=== PATIENT | female | born 1980 | race Caucasian/White ===

== ENCOUNTER → 2016-10-18 | Outpatient (CLI) | payer OTHER ==
[~2016-10-18] VITALS: Ht 160 cm; Wt 89.4 kg
[~2016-10-18] MED LIST: ABILIFY 5 MG TAB5 MG PO; AUGMENTIN 875875 MG PO; CLONAZEPAM 1 MG1 M1 PO; CONCERTA18 M1 PO; CYMBALTA30 MG PO; DIETHYLPROPION25 MG PO; DRENAMIN; ELMIRON 100 MG100 M1 PO; FLEXERIL PO; HYDROCODON-ACE1 EAC5 PO; HYDROCODONE-AP1 EAC6; HYDROCODONE-AP1 EAC6 PO; HYDROXYZINE HCL25 M1 PO; IBUPROFEN 200200 M1 PO; IBUPROFEN 800800 M1 PO; LAMICTAL XR50 MG PO; LEVSIN-SL0.125 MG SL; LIDODERM 5%1 PATC1 TRANSDERM; LORZONE750 MG PO; NEURONTIN 300300 M1 PO; NORCO 10-325 T1 EACH PO; PHENAZOPYRIDIN200 M2 PO; RESTORIL15 MG PO; SKELAXIN 800 M800 M1 PO; TRAMADOL 50 MG50 MG PO; TRILEPTAL600 MG PO; [UNRECOGNIZED DRUG - OTHER]
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
[2016-10-18 10:49] VITALS: BP 114/83
== END | disposition home or self-care (01) ==
LOC: PAIN 10-12 07:51
DX: M96.1 Postlaminectomy syndrome, not elsewhere classified (principal); F31.9 Bipolar disorder, unspecified; G89.29 Other chronic pain; E66.09 Other obesity due to excess calories; Z68.34 Body mass index [BMI] 34.0-34.9, adult

== ENCOUNTER → 2017-02-21 | Outpatient (CLI) | payer OTHER ==
[~2017-02-21] VITALS: Ht 160 cm; Wt 97.9 kg
[~2017-02-21] MED LIST changes: +ABILIFY 2 MG2 M1 PO; +ALEVE220 MG PO
--- NOTE | ~2017-02-21 | HPC ---
[facility] [place] [address] PAIN MANAGEMENT CONSULTATION Name: DOWELL,ETHANJosefina KRAMER Room #: REG [facility] Isabelle.#: [id number] Admission: 02/21/17 Attend Phys: Kt Bundy DO Discharge: Date of : 76 Report #: [id number] THIS REPORT FOR: //name// CC: Kt Haji MD DATE OF SERVICE: 02/21/2017 CHIEF COMPLAINT: Low back pain, right lower extremity pain and paresthesias. HISTORY OF PRESENT ILLNESS: As you know, the patient is a 36-year-old female followed by my partner, Dr. Rene Márquez for lumbar radicular symptoms. She has done very well with transforaminal epidural injections under fluoroscopic guidance provided at the L5-S1 level on the right. This tends to address her lumbar radicular symptoms radiating down the leg in the L5-S1 distribution. She returns today in followup visit requesting next in the series of epidural injections. She is placing pain score today at around 7/10. States the pain begins in the right buttock area, radiates down the right leg all the way to the foot, chronic in nature, sharp, shooting, electrical, numbness and tingling in sensation, exacerbated with standing, sitting, lying down, walking and bending. Medications and epidural injections tend to improve pain. She returns today requesting this transforaminal epidural injection be provided today. ALLERGIES: NITROFURANTOIN, VIOXX and OXYCODONE. CURRENT MEDICATIONS: Clonazepam, hydroxyzine, lamotrigine, ibuprofen, Lorzone, gabapentin, diethylpropion, duloxetine, naproxen, aripiprazole. IMAGING: No new imaging available. PHYSICAL EXAMINATION: VITAL SIGNS: Blood pressure 113/57, pulse 86, respiratory rate 14, unlabored. The patient is 100% on room air, height 5 feet 3 inches tall, weight 215.8 pounds. GENERAL: Well developed, well nourished, well-hydrated exogenously obese 36-year-old female appearing stated age, placing current pain score 7/10. HEENT: Normocephalic, atraumatic. Pupils equal, round, reactive to light. Speech fluent. EXTREMITIES: Show no clubbing, no cyanosis, no edema. MUSCULOSKELETAL: Seated straight leg raising negative. Supine straight leg raising positive on the right. Fabere's test negative. Gait is slightly antalgic favoring right lower extremity over left. ASSESSMENT: [address] [address] PAIN MANAGEMENT CONSULTATION Name: ETHAN DOWELL Room #: REG [facility]#: [id number] Admission: 02/21/17 Attend Phys: Kt Bundy DO Discharge: Date of : 76 Report #: [id number] 1. Symptomatic lumbar radiculopathy. 2. Displacement of lumbar intervertebral disk with radiculopathy. 3. Spinal stenosis of lumbar spine. 4. Chronic intractable pain. PLAN: 1. The patient has returned today in followup visit requesting a transforaminal epidural injection under fluoroscopic guidance. The patient has done very well with previous transforaminal epidural injections. These have been provided by Dr. Rene Márquez. She returns today to undergo the next in the series. She has been advised risks and benefits of the procedure, states she understood and wished to proceed. 2. No medication changes were made at today's visit. The patient to continue current medical therapy as previously prescribed. 3. The patient to return to our clinic on an as needed basis for possible repeat transforaminal epidural injection. PROCEDURE NOTE: DESCRIPTION OF PROCEDURE: The right L5-S1 lumbar transforaminal epidural injection under fluoroscopic guidance. This is the first procedure of the third series, the patient is undergoing. After obtaining written consent, the patient was taken back to the fluoroscopy suite, placed in a prone position with pillow under the abdomen to decrease lumbar lordosis. Skin overlying the lumbosacral area was then prepped and draped in aseptic fashion. The L5-S1 vertebrae were identified by fluoroscopy. The neural foramen (6 o'clock position of the pedicle) was then identified utilizing an oblique fluoroscopic view. The skin and subcutaneous tissue overlying the target site of injection was then anesthetized with 3 mL of 1% lidocaine. Using a "tunnel view," a 22-guage 4-1/2 inch Tuohy needle with a bent tip was advanced towards the right epidural space under fluoroscopic guidance. The final position of the needle was identified using AP and lateral views. There were known paresthesias with final positioning of the needle. After negative aspiration for heme or cerebrospinal fluid, a total of 0.5 mL of Omnipaque was injected under live AP fluoroscopy to demonstrated absence of vascular uptake. AP and lateral imaging demonstrated an excellent L5 neurogram epidurogram. Pain provocation by the injected contrast material was negative. After negative aspiration for heme or cerebrospinal fluid, 5 mL of a solution containing 2 mL 40 mg per mL 80 mg total triamcinolone, 3 mL of lidocaine 1% was injected in increments. The needle was then retracted approximately group home and the needle tract flushed with 1 mL of 1% lidocaine. A sterile bandage placed over the injection site. There were no new motor deficits present in the lower extremities following the procedure. The heart rate, pulse oximetry and blood pressure were continuously monitored [facility] [address] [place] [address] PAIN MANAGEMENT CONSULTATION Name: ETHAN DOWELL Room #: REG CL Ceasar#: [id number] Admission: 02/21/17 Attend Phys: Kt Bundy DO Discharge: Date of : 76 Report #: [id number] after the procedure. There were no apparent complications. The patient tolerated the procedure well and was carefully escorted to the recovery room in stable condition. After meeting discharge criteria, the patient was discharged home. By: [id number] Kt Bundy DO /nt
[2017-02-21 09:06] VITALS: BP 113/57
== END | disposition home or self-care (01) ==
LOC: PAIN 07:09
DX: M54.16 Radiculopathy, lumbar region (principal); M51.16 Intervertebral disc disorders with radiculopathy, lumbar region; M48.06 Spinal stenosis, lumbar region; G89.29 Other chronic pain